=== PATIENT | male | born 1960 | race Caucasian/White ===

== ENCOUNTER 2016-06-18 08:33 | Day surgery (SDC) | payer MEDICAID, MEDICARE ==
[~2016-06-18] VITALS: Ht 177.8 cm; Wt 120.1 kg
[~2016-06-18 08:33] MED LIST: ALBU0.63 INHALATION; BUPR150T8 PO; FLUT50DI IH; GABA-502 PO; Lactated Ringer's 1,000 ML IV ONE; PRE20 PO
[2016-06-18] MEDS ORDERED: Propofol 10,000 mCg/mL 20 mL Inj ONE (08:34)
[2016-06-18] MEDS ORDERED: fentaNYL-PF 50 mCg/mL 2 mL Inj ONE (08:34)
[2016-06-18] MEDS ORDERED: Lactated Ringer's 1,000 ML IV SCH (08:57)
--- NOTE | 2016-06-18 08:57 | PCM.HPANE ---
Patient Data Date of Service: Jun 18, 2016 (0855) Surgeon Admitting Provider: Attending Provider:Milo Carias MD Primary Care Physician:Margaret Morales PA-C Other Provider:Lalito Mesa Anesthesia Reason for Visit Screening, Bloating Ht/WT & BMI Height (Feet): 5 Height (Inches): 10 Weight (Kilograms): 120.10 Body Mass Index 37.00 Allergies Coded Allergies: No Known Allergies (Unverified Allergy, Unknown, 06/17/16) Past Anesthesia History Anesthesia History: Denies:: Abnormal Airway, Difficult Intubation Diabetes History Hx Diabetes?: No MRSA MRSA: No Medications Reported Medications Bupropion ER (Wellbutrin SR)150 Mg Tablet.er150 Mg PO BID Ref 0 06/17/16 Gabapentin 300 Mg Ncmgoel049 Mg PO TID Ref 0 06/17/16 Fluticasone Propionate (Flovent Diskus)50 Mcg Disk.w.dev1 Puff IH BID #1 INHALER Ref 0 06/17/16 Albuterol Neb Soln 0.63 Mg/3 Ml Vial.neb0.63 Mg INHALATION Q4H PRN For Shortness of Breath Ref 0 06/17/16 Discontinued Reported Medications Prednisone (PredniSONE)20 Mg Ppvpls67 Mg PO DAILY Ref 0 06/17/16 History HEENT History: Denies:: Abnormal Airway Difficult Intubation Hearing Problem Denture Type: Full- Upper Teeth Condition: Missing Teeth Tooth Decay Hx of Heart Problems?: No Hx of Respiratory Problem?: Yes Respiratory History: Positive for:: COPD Pneumonia Neurological History: Denies:: CVA Hx of GI Problems?: Yes Other GI Pertinent History: bloating Psycho Social History: Positive for:: Anxiety Hx Depression Hx Surgeries?: No Hx Any Other Health Problems?: Yes Hx Diabetes: No Hx Alcohol Use: No Stop/Bang Treated for Sleep Apnea?: No Do You Have a CPAP Machine?: No S-Snoring: Do You Snore Loudly: Yes T-Tired: feel tired, fatigued: No O-Obsered: Observed not breath: No P-Blood Pressure: treated: No B- Body Mass Index > 35 kg/m2: Yes A- Age over 50: Yes N- Neck Large Circumference: Yes G- Gender Male: Yes MADHU Total Score: 5 MADHU Risk Assessment: High Risk, =/>3 Yes Risk Assessment Category Category 1A: Patient has history of documented sleep apnea, and HAS NOT received any narcotic, sedative or anesthesia administration during this stay. Category 1B: Patient has history of documented sleep apnea, and HAS received any narcotic , sedative or anesthesia administration during this stay Category 2: Patient has SUSPECTED Obstructive Sleep Apnea, and HAS received any narcotic , sedative or anesthesia administration during this stay. Category 3: Patient has SUSPECTED Obstructive Sleep Apnea and HAS NOT received narcotic, sedative or anesthesia administration during this stay. Category 4: Outpatient in Procedural Areas with known sleep apnea or who screen positive for High Risk via the STOP/BANG questionnaire. Exam Exam General Appearance: Alert, Oriented X3 HEENT/AIRWAY: MP 1 Lungs: Clear to Auscultation Heart: Exam Unremarkable Plan Impression Patient chart reviewed, patient interviewed and anesthestic plan with risks, benefits, and alternatives discussed, and informed consent obtained. ASA Physical Status: ASA2 Mod Systemic Disease Anesthetic Plan: GA Bene/Risks/Altern/Consents: Yes HP Complete Prior to Induction: Yes Remberto Mondragon MD Jun 18, 2016 08:57
[2016-06-18 08:58] VITALS: BP 150/90; PULSE 76; RESP 16; O2SAT 96
[2016-06-18] MEDS ORDERED: Ondansetron 2 mg/mL 2 mL Inj IVPUSH PRN (09:00)
[2016-06-18] MEDS ORDERED: MetoCLOpramide 5 mg/mL 2 mL Inj IVPUSH PRN (09:00)
[2016-06-18 09:35] VITALS: BP 108/74; PULSE 70; RESP 16; O2SAT 93
--- NOTE | 2016-06-18 09:35 | PCM.ANEP1 ---
Post Anesthesia Phase 1 PACU Phase 1 Assessment Date of Service: Jun 18, 2016 (0855) Vital Signs 108/74, 63, 16, 93%, 36.1 Anesthetic Administered: GA Level of Alertness: Awake, talking ZAPATA's with Equal Strength: Yes Pain: No Nausea or Vomiting: No Oxygen Delivery: Room Air Lungs: Clear to Auscultation Dermatome Level: Full Sensation Summary UNEVENTFUL GA Remberto Mondragon MD Jun 18, 2016 09:35
--- NOTE | 2016-06-18 09:35 | PCM.ANEP2 ---
Post Anesthesia Evaluation ASA/CMS Post Anesthesia VS in Patient's Normal Range?: Yes Resp Stable; Airway Patent?: Yes CV Function & Hydration Stable: Yes Mental Status Recovered?: Yes Pain control Satisfactory?: Yes N/V Control Satisfactory?: Yes Remberto Mondragon MD Jun 18, 2016 09:35
[2016-06-18 09:49] VITALS: BP 108/74; PULSE 60; RESP 14; O2SAT 91
--- NOTE | 2016-06-18 10:53 | ENDO ---
[address] [address] ENDOSCOPY PROCEDURE PATIENT: ROBERTO CARLOS TERRAZAS : 1960 MR#: [id number] ADMIT: 06/18/2016 JOB ID: [id number] DATE: 06/18/2016 PROCEDURE: Esophagogastroduodenoscopy. INDICATION: Abdominal bloating. The patient's ASA classification, Mallampati score and medications as per anesthesia report. INSTRUMENT USED: GIF H 180 J. PROCEDURE DETAILS: After informed consent was obtained, the patient was brought into the GI suite, where he was placed on oxygen via nasal cannula and monitored with continuous pulse oximeter, telemetry and blood pressure monitoring. A time-out was performed. Then, he was placed in a left lateral decubitus position and medications were administered for sedation. A bite block was placed. The standard EGD scope was inserted through the bite block and advanced under direct visualization to the second portion of duodenum without difficulty. FINDINGS: 1. Normal appearing duodenal bulb, first and second portion. Multiple random biopsies were obtained. 2. Normal-appearing pylorus, antrum and gastric body. Multiple random biopsies were obtained. 3. Retroflexed views in the gastric body revealed a normal-appearing cardia and fundus. 4. The GE junction was at approximately 40-42 cm. There was salmon-colored mucosa extending up to 41 cm. Multiple biopsies were obtained of the salmon-colored mucosa. 5. Remainder of the esophagus otherwise unremarkable. FINDINGS: 1. C0 M1 Ad classification Andrew's. 2. Otherwise normal examination. RECOMMENDATIONS: 1. Continue PPI. 2. Proceed to colonoscopy. COMPLICATIONS: None. ESTIMATED BLOOD LOSS: Less than 5 mL. PROCEDURE PERFORMED: Colonoscopy. INDICATION: Colon cancer screening. Please see above for ASA classification, Mallampati score and medications. INSTRUMENT USED: PCF H 190 DL. PREPARATION QUALITY: Was fair. PROCEDURE DETAILS: After completion of the EGD examination, a digital rectal examination with palpation of the prostate was performed, which was unremarkable. The colonoscope was then inserted into the rectum and advanced under direct visualization to the cecum, which was identified by the presence of the ileocecal valve and appendiceal orifice. Once the cecum was reached, the colonoscope was withdrawn back into the rectum. Mucosa and lumen were examined. In the rectum, retroflexion was performed. Following retroflexion, remaining air in the rectum was suctioned and procedure was completed. FINDINGS: 1. In the ascending colon, there was an approximately 6 mm sessile polyp that was removed with a hot snare. 2. In the sigmoid colon there was a diminutive polyp that was removed with cold biopsy forceps. 3. In the distal rectum, there was a diminutive polyp that was removed with cold biopsy forceps. IMPRESSION: 1. Ascending colon polyp. 2. Sigmoid polyp. 3. Rectal polyp. RECOMMENDATIONS: 1. Repeat colonoscopy pending polyp pathology results. 2. Avoid nonsteroidal anti-inflammatory drugs and anticoagulants for 72 hours. COMPLICATIONS: None. ESTIMATED BLOOD LOSS: Less than 5 mL. Followup in GI clinic with Dr. Roberto Carlos Paz.
--- NOTE | 2016-06-19 13:58 | PATH ---
SURGICAL PATHOLOGY Attending Physician:Killian Botello CASE STATUS: Signed Out PATIENT NAME: ANI TERRAZAS PID: [id number] : 1960 DATE COLLECTED:06/18/2016 18:24 SPECIMEN: 1: Duodenum, Biopsy 2: Gastric, Biopsy 3: Esophagus, Biopsy 4: Colon, Biopsy 5: Colon, Biopsy 6: Rectum, Biopsy CLINICAL HISTORY: BLOATING 1). DUODENUM BIOPSY 2). GASTRIC BIOPSY 3). GASTRO-ESOPHAGEAL JUNCTION BIOPSY 4). ASCENDING COLON POLYP X1 5). SIGMOID COLON POLYP X1 6). RECTAL POLYP X1 FINAL DIAGNOSIS: 1.DUODENUM, BIOPSY: NO DIAGNOSTIC ABNORMALITY. Negative for intraepithelial lymphocytosis, villous blunting, or other features of celiac sprue. Negative for Giardia organisms, dysplasia and malignancy. 2.GASTRIC BIOPSY: NORMAL GASTRIC ANTRUM. Negative for Helicobacter organisms. Negative for intestinal metaplasia. No evidence of dysplasia or malignancy. 3.GASTROESOPHAGEAL JUNCTION BIOPSY: ESOPHAGEAL SQUAMOUS EPITHELIUM AND GASTRIC GLANDULAR MUCOSA WITH CHRONIC ACTIVE INFLAMMATION. Negative for intestinal metaplasia. No evidence of dysplasia or malignancy. 4.ASCENDING COLON POLYP: SESSILE SERRATED ADENOMA. 5.SIGMOID COLON POLYP: HYPERPLASTIC POLYP. 6.RECTAL POLYP: HYPERPLASTIC POLYP. ICD10 CODE D12.6 K20.9 GROSS DESCRIPTION: The specimen is received in six formalin filled containers labeled with the patient's name. 1). The specimen is sublabeled "duodenum" and consists of 5 portions of tissue which aggregate to 0.4 x 0.4 x 0.2 CM. The specimen is entirely submitted in cassette 1A. 2). The specimen is sublabeled "gastric" and consists of a 0.4 x 0.3 x 0.3 CM portion of tissue which is entirely submitted in cassette 2A. 3). The specimen is sublabeled " GEJ " and consists of a 0.3 x 0.2 x 0.2 CM portion of tissue which is entirely submitted in cassettes 3A. 4). The specimen is sublabeled "ascending colon polyp x1" and consists of 2 portions of tissue which aggregate to 0.4 x 0.3 x 0.2 CM. The specimen is entirely submitted in cassette 4A. 5). The specimen is sublabeled "sigmoid colon polyp x1" and consists of 2 portions of tissue which aggregate to 0.3 x 0.2 x 0.2 CM. The specimen is entirely submitted in cassette 5A. 6). The specimen is sublabeled "rectal polyp x1" and consists of a 0.3 x 0.2 x 0.2 CM portion of tissue which is entirely submitted in cassette 6A. 06/18/2016 DAC MICRO DESCRIPTION: See diagnosis. ICD-9 CODES: CPT CODES: 1: 15077 2: 94716 3: 49348 4: 14644 5: 58096 6: 75737 Electronically Signed Out Kuldip Becerra MD [facility] [address], [place] [address] Technical component performed at [facility], [address], [place], [address]
== END 2016-06-18 23:59 | disposition home or self-care (01) ==
LOC: END 08:33
PROVIDERS: ATTEND Internal Medicine Gastroenterology
DX: Z12.11 Encounter for screening for malignant neoplasm of colon (principal); D12.2 Benign neoplasm of ascending colon; K63.5 Polyp of colon; K62.1 Rectal polyp; R14.0 Abdominal distension (gaseous); K22.70 Barrett's esophagus without dysplasia; F31.9 Bipolar disorder, unspecified; J44.9 Chronic obstructive pulmonary disease, unspecified; F12.90 Cannabis use, unspecified, uncomplicated; K76.0 Fatty (change of) liver, not elsewhere classified
CPT/HCPCS: 43239; 45380; 45385; 88305; J2250; J3010; J7120